=== PATIENT | female | born 1985 | race Two or more races ===

== ENCOUNTER 2025-02-02 17:59 | Emergency (ER) | payer MEDICAID, OTHER ==
[~2025-02-02] VITALS: Ht 160 cm; Wt 134.0 kg
[2025-02-02 18:46] VITALS: BP 99/57; PULSE 121; RESP 20; TEMP 97; O2SAT 96
--- NOTE | 2025-02-02 18:48 | ED.PDOC ---
History of Present Illness(SKN HPI Comments PT HERE FOR LEFT 1ST FINGER WOUND PT STATES SHE FELT BURNING SO SHE WASHED HER HAND AND KEPT RUBBING AND SKIN PEELED OFF DURING THIS TIME Chief Complaint: Wound Check Time Seen by MD: 18:08 History of Present Illness: Nurses Notes, Medications, Allergies Allergies: Coded Allergies: NO KNOWN ALLERGIES (Unverified , 02/02/25) Home Meds Active Scripts Doxycycline Hyclate (Doxycycline Hyclate) 100 Mg Cap, 100 MG PO BID for 5 Days, #10 CAP Prov:NANCI ESPINO SMOKE JUMPER 02/02/25 Information Source: Patient Mode of Arrival: Wheelchair Past Medical History PAST MEDICAL HISTORY: Denies Surgical History: Denies all surgeries 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: No Pertinent 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 Family History Family History: Unknown Social History Smoker: Non-Smoker Alcohol: Denies ETOH Use Drugs: Denies Drug Use Constitutional: denies: chills, diaphoresis, fatigue, fever, malaise, sweats, weakness, others EENTM: denies: blurred vision, double vision, ear bleeding, ear discharge, ear drainage, ear pain, ear ringing, eye pain, eye redness, hearing loss, mouth pain, mouth swelling, nasal discharge, nose bleeding, nose congestion, nose pain, photophobia, tearing, throat pain, throat swelling, voice changes, others Respiratory: denies: cough, hemoptysis, orthopnea, SOB at rest, shortness of breath, SOB with excertion, stridor, wheezing, others Cardiovascular: denies: chest pain, dizzy spells, diaphoresis, Dyspnea on exertion, edema, irregular heart beat, left arm pain, lightheadedness, palpitations, PND, syncope, others Gastrointestinal: denies: abdomen distended, abdominal pain, blood streaked bowels, constipated, diarrhea, dysphagia, difficulty swallowing, hematemesis, melena, nausea, poor appetite, poor fluid intake, rectal bleeding, rectal pain, vomiting, others Genitourinary: denies: abnormal vagina bleeding, burning, dyspareunia, dysuria, flank pain, frequency, hematuria, incontinence, pain, , vagina discharge, urgency, others Neurological: denies: dizziness, fainting, headache, left sided numbness, left sided weakness, numbness, paresthesia, pre-existing deficit, right sided numbness, right sided weakness, seizure, speech problems, tingling, tremors, weakness, others Musculoskeletal: denies: back pain, gout, joint pain, joint swelling, muscle pain, muscle stiffness, neck pain, others Integumetry: reports: wounds (Left 2nd finger wound); denies: bruises, change in color, change in hair/nails, dryness, laceration, lesions, lumps, rash, others Allergic/Immunocompromised: denies: Difficulty Healing, Frequent Infections, Hives, Itching, others Hematologic/Lymphatic: denies: anemia, blood clots, easy bleeding, easy bruising, swollen glands, others Endocrine: denies: excessive hunger, excessive sweating, excessive thirst, excessive urination, flushing, intolerance to cold, intolerance to heat, unexplained weight gain, unexplained weight loss, others Psychiatric: denies: anxiety, bipolar disorder, depression, hopeless, panic disorder, schizophrenia, sleepless, suicidal, others Physical Exam General Appearance: No Apparent Distress, Normal HEENT: Pharynx Normal Neck: Full Range of Motion, Non-Tender Respiratory: Lungs Clear, No Respiratory Distress, Normal Breath Sounds Cardiovascular: No Murmur, Normal Peripheral Pulses, Regular Rate/Rhythm Breast Exam: Deferred Gastrointestinal: Non Tender, Soft Genitalia: Deferred Pelvic: Deferred Rectal: Deferred Extremities: No calf tenderness, Normal capillary refill, Normal inspection, Normal range of motion, Non-tender, No pedal edema Musculoskeletal : Apperance: Normal Neurologic: Alert, pan washer II-XII nml as Tested, No Motor Deficits, Normal Affect, Normal Mood, No Sensory Deficits Cerebellar Function: Normal Reflexes: Normal Skin: Dry, Normal Color, Warm, Wounds (Left 2nd digit noted multiple skin tears over knuckle no noted drainage trace erythema no noted puncture wound) Lymphatic: No Adenopathy Was a procedure done? Was a procedure done?: No Differential Diagnosis (INTG) Differential Diagnosis: Abrasion, Cellulitis, Hematoma, Puncture Wound Differential Diagnosis: Abscess, Impetigo, Psoriasis, Tinea X-Ray, Labs, Meds, VS Vital Signs Date Time Temp Pulse Resp B/P (MAP) Pulse Ox O2 Delivery O2 Flow Rate FiO2 02/02/25 18:46 97.0 121 20 99/57 (71) 96 97.0 02/02/25 18:46 121 20 96 Room Air 02/02/25 18:09 97.0 121 20 99/57 (90) 96 97.0 Current Medications Medications (Trade) Dose Ordered Sig/María Elena Route Start Time Stop Time Status Last Admin Ceftriaxone Sodium (Rocephin) 1,000 mg ONCE ONCE IM 02/02/25 19:00 02/02/25 19:01 DC 02/02/25 19:10 Bacitracin 1 applic ONCE ONCE TOP 02/02/25 19:15 02/02/25 19:16 DC 02/02/25 19:10 X-Ray, Labs, Meds, VS Comment Infected. Advised patient to stop picking at it. Patient given Rocephin 1 g IM reports improvement requesting discharge at this time. We will script a ntibiotics outpatient. Take medications as prescribed side effects discussed. Follow up with your PCP in 1-2 days for wound re-evaluation. ER return precautions given patient indicates understanding agrees with discharge plan of care. Time of 1ST Reevaluation: 18:48 Reevaluation 1ST: Unchanged Time of 2ND Reevaluation: 18:58 Reevaluation 2ND: Improved Patient Education/Counseling: Diagnosis, Treatment, Prognosis, Need For Follow Up Family Education/Counseling: Diagnosis, Treatment, Prognosis, Need For Follow Up Departure 1 Departure Time of Disposition: 18:58 Impression: Primary Impression: Bug bite of finger, infected Disposition: 01 HOME / SELF CARE / HOMELESS Condition: Stable e-Prescriptions Doxycycline Hyclate (Doxycycline Hyclate) 100 Mg Cap 100 MG PO BID for 5 Days, #10 CAP Prov: NANCI ESPINO 02/02/25 Discharged With: Self Critical Care Note Critical Care Time?: No Stability Stability form required: No NANCI ESPINO Feb 02, 2025 18:48
[2025-02-02] MEDS ORDERED: DOXY100C4 PO (19:00)
[2025-02-02] MEDS: cefTRIAXone SOD 1,000 MG VL IM ONE (19:10)
[2025-02-02] MEDS: BACITRACIN TOP OINT 1 UD PKG TOP ONE (19:10)
== END 2025-02-02 19:37 | disposition home or self-care (01) ==
LOC: ER 18:03
DX: S60.469A Insect bite (nonvenomous) of unspecified finger, initial encounter (principal); W57.XXXA Bitten or stung by nonvenomous insect and other nonvenomous arthropods, initial encounter; Y93.89 Activity, other specified; Y92.89 Other specified places as the place of occurrence of the external cause; Y99.8 Other external cause status
CPT/HCPCS: 96372; 99283; J0696

== ENCOUNTER 2025-02-15 22:52 | Emergency (ER) | payer MEDICAID ==
[~2025-02-15] VITALS: Ht 160 cm; Wt 136.2 kg
--- NOTE | 2025-02-16 00:24 | ED.PDOC ---
General HPI Comments 39-year-old female who came to ER for pelvic pain. Patient has history of endometriosis. States she started having menstrual cycle yesterday, and as usual she started having suprapubic abdominal pain. Noted also to of dysuria. Denies any fever Chief Complaint: Pelvic Pain Time Seen by MD: 00:22 Reviewed notes: Nurses Notes Allergies: Coded Allergies: NO KNOWN ALLERGIES (Unverified , 02/02/25) Information Source: Patient Mode of Arrival: Wheelchair Severity: Moderate Inability to void: Mild Timing: Hours Duration: Since onset Has not urinated for: Minutes Symptoms: Dysuria History of: Other (Endometriosis) Location: Suprapubic associated signs and symptoms: Abdominal Pain, Dysuria Past Medical History PAST MEDICAL HISTORY: Denies Surgical History: Tubal Ligation MANAGER OF COMPENSATION History: No Pertinent MANAGER OF COMPENSATION History, Endometriosis Family History Family History: Unknown Social History Smoker: Non-Smoker Alcohol: Denies ETOH Use Drugs: Denies Drug Use Constitutional: denies: chills, diaphoresis, fatigue, fever, malaise, sweats, weakness, others EENTM: denies: blurred vision, double vision, ear bleeding, ear discharge, ear drainage, ear pain, ear ringing, eye pain, eye redness, hearing loss, mouth pain, mouth swelling, nasal discharge, nose bleeding, nose congestion, nose erendira n, photophobia, tearing, throat pain, throat swelling, voice changes, others Respiratory: denies: cough, hemoptysis, orthopnea, SOB at rest, shortness of breath, SOB with excertion, stridor, wheezing, others Cardiovascular: denies: chest pain, dizzy spells, diaphoresis, Dyspnea on exertion, edema, irregular heart beat, left arm pain, lightheadedness, palpitations, PND, syncope, others Gastrointestinal: reports: abdominal pain; denies: abdomen distended, blood streaked bowels, constipated, diarrhea, dysphagia, difficulty swallowing, hematemesis, melena, nausea, poor appetite, poor fluid intake, rectal bleeding, rectal pain, vomiting, others Genitourinary: reports: abnormal vagina bleeding, dysuria; denies: burning, dyspareunia, flank pain, frequency, hematuria, incontinence, pain, , vagina discharge, urgency, others Neurological: denies: dizziness, fainting, headache, left sided numbness, left sided weakness, numbness, paresthesia, pre-existing deficit, right sided numbness, right sided weakness, seizure, speech problems, tingling, tremors, weakness, others Musculoskeletal: denies: back pain, gout, joint pain, joint swelling, muscle pain, muscle stiffness, neck pain, others Integumetry: denies: bruises, change in color, change in hair/nails, dryness, laceration, lesions, lumps, rash, wounds, others Allergic/Immunocompromised: denies: Difficulty Healing, Frequent Infections, Hives, Itching, others Hematologic/Lymphatic: denies: anemia, blood clots, easy bleeding, easy bruising, swollen glands, others Endocrine: denies: excessive hunger, excessive sweating, excessive thirst, excessive urination, flushing, intolerance to cold, intolerance to heat, unexplained weight gain, unexplained weight loss, others Psychiatric: denies: anxiety, bipolar disorder, depression, hopeless, panic disorder, schizophrenia, sleepless, suicidal, others Physical Exam General Appearance: No Apparent Distress, Normal HEENT: Normal ENT Inspection, Pharynx Normal, TMs Normal Neck: Full Range of Motion, Non-Tender, Normal, Normal Inspection Respiratory: Chest Non-Tender, Lungs Clear, No Accessory Muscle Use, No Respiratory Distress, Normal Breath Sounds Cardiovascular: No Edema, No JVD, No Murmur, No Gallop, Normal Peripheral Pulses, Regular Rate/Rhythm Breast Exam: Deferred Gastrointestinal: No Organomegaly, Non Tender, No Pulsatile Mass, Normal Bowel Sounds, Soft Genitalia: Deferred Pelvic: Deferred Rectal: Deferred Extremities: No calf tenderness, Normal capillary refill, Normal inspection, Normal range of motion, Non-tender, No pedal edema Musculoskeletal : Apperance: Normal Neurologic: Alert, film and video editor II-XII nml as Tested, No Motor Deficits, Normal Affect, Normal Mood, No Sensory Deficits Cerebellar Function: Normal Reflexes: Normal Skin: Dry, Normal Color, Warm Lymphatic: No Adenopathy Was a procedure done? Was a procedure done?: No Differential Diagnosis Kidney stone (Female): Ovarian torsion, Pancreatitis, Pyelonephritis, Urinary obstruction, Urolithiasis Urinary Problem (Female): PID, Pyelonephritis, Urolithiasis, UTI, Other (Endometriosis) X-Ray, Labs, Meds, VS Vital Signs Date Time Temp Pulse Resp B/P (MAP) Pulse Ox O2 Delivery O2 Flow Rate FiO2 02/16/25 00:35 Room Air* 0 21 02/16/25 00:35 98.0 78 20 156/66 (96) 96 98.0 02/15/25 23:04 98.0 80 18 145/94 (111) 100 98.0 Current Medications Medications (Trade) Dose Ordered Sig/María Elena Route Start Time Stop Time Status Last Admin Acetaminophen/ Hydrocodone Bitart ([place] 10/325MG Tab) 1 tab ONCE ONCE PO 02/16/25 00:00 02/16/25 00:01 DC 02/16/25 00:40 Time of 1ST Reevaluation: 00:17 Reevaluation 1ST: Unchanged Patient Education/Counseling: Diagnosis, Treatment Family Education/Counseling: No Family Present Departure 1 Departure Time of Disposition: 01:59 (Patient with known endometriosis. We will discharge patient home with outpatient follow up) Impression: Primary Impression: Endometriosis Disposition: 01 HOME / SELF CARE / HOMELESS Condition: Stable Referrals: ALPESH TUCKER DO Additional Instructions: It is important to follow up with your OBGYN. You were referred to our OB here in case you can not get in. For pain you can take the followinam: Ibuprofen 400mg with food Noon: Acetaminophen 1000mg 4pm: Ibuprofen 400mg with food 8pm: Acetaminophen 1000mg You should follow up with your regular doctor within one week to ensure you are doing better. If your symptoms worsen or you have any other concerns then please return to the ER. Critical Care Note Critical Care Time?: No Stability Stability form required: No Heart Score Heart Score: Heart Score Response (Comments) Value History N/A 0 EKG N/A 0 Age N/A 0 Risk Factors N/A 0 Troponin N/A 0 Total 0 I personally scribed for LACY TOTH MD ([email or web address]) on 02/16/25 at 00:24. Electronically submitted by Paul Teague ([email or web address]). LACY TOTH MD February 16, 2025 00:24
[2025-02-16 00:35] VITALS: BP 156/66; PULSE 78; RESP 20; TEMP 98; O2SAT 96
[2025-02-16] MEDS: HYDROcodone-ACET 10/325MG TAB PO ONE (00:40)
== END 2025-02-16 02:52 | disposition home or self-care (01) ==
LOC: ER 22:52
DX: N80.9 Endometriosis, unspecified (principal); Z98.51 Tubal ligation status